=== PATIENT | male | born 1970 ===

== ENCOUNTER 2019-12-14 12:33 | Outpatient (CLI) | payer BC ==
--- NOTE | 2019-12-14 14:22 | CT ---
CT OF THE ABDOMEN AND PELVIS WITHOUT IV CONTRAST: 12/14/19 HISTORY: History of left lower quadrant abdominal pain and renal stones. COMPARISON: None. FINDINGS: There is slight inflammatory stranding seen involving the right renal pelvis and right ureter. There is a 2 mm stone just beyond the right UVJ seen within the right posterolateral aspect of the bladder. No heri hydronephrosis is evident. No additional nonobstructing renal calculi are noted. Lung bases are clear. There is a tiny cyst within the left hepatic lobe. The unopacified gallbladder, adrenal glands, pancreas and spleen appear within normal limits. There are mild vascular calcifications involving the abdominal and pelvic vasculature. The unopacified large and small bowel reveal no definite acute abnormality. Small bowel is of normal caliber appearing. No definite acute osseous abnormality is evident. There is scattered degenerative and osteoarthritic change. Advanced disc degenerative disease is seen at L4-5 an L5-S1. IMPRESSION: 1. Findings consistent with recently passed stone in the right posterolateral aspect of the blad sue with some mild right ureteral and right renal pelvic inflammatory stranding, likely reactive in n ature. 2. No additional renal or ureteral calculus demonstrated. 3. Other chronic findings as above. POS: BH
== END 2019-12-14 12:34 | disposition home or self-care (01) ==
LOC: SCSCT 12:33
PROVIDERS: ATTEND Physician Assistant
DX: R31.9 Hematuria, unspecified (principal); R10.9 Unspecified abdominal pain; Z87.442 Personal history of urinary calculi
CPT/HCPCS: 74176